=== PATIENT | male | born 1975 | race Caucasian/White ===

== ENCOUNTER 2016-05-27 14:58 | Emergency (ER) | payer MEDICAID ==
[~2016-05-27] VITALS: Ht 170.2 cm; Wt 77.3 kg
[2016-05-27] MEDS ORDERED: TETANUS/DIPHTHERIA TOXOID [ADULT] 0.5 ML SYRINGE IM ONE (17:30)
[2016-05-27] MEDS: MORPHINE SULFATE 4 MG/ML SYRINGE IM ONE (17:44)
[2016-05-27] MEDS: LIDOCAINE HCL BUFFERED 1% 20 ML VIAL INJ ONE (18:11)
[2016-05-27] MEDS: PERTUSS(ACELL),DIPH,TET VAC/PF 0.5 ML VIAL IM ONE (18:12)
[2016-05-27 21:00] VITALS: BP 119/76
== END 2016-05-27 22:16 | disposition home or self-care (01) ==
LOC: EMS 15:00
DX: S62.617A Displaced fracture of proximal phalanx of left little finger, initial encounter for closed fracture (principal); S56.128A Laceration of flexor muscle, fascia and tendon of left little finger at forearm level, initial encounter; W31.2XXA Contact with powered woodworking and forming machines, initial encounter; Y93.89 Activity, other specified; Y92.89 Other specified places as the place of occurrence of the external cause; Y99.8 Other external cause status
CPT/HCPCS: 12002; 73130; 90471; 90715; 96372; 99284; J2270; J3490; 90714